=== PATIENT | male | born 1985 | race Hispanic/Latino ===

== ENCOUNTER 2017-11-04 03:56 | Emergency (ER) | payer SELFPAY | END 2017-11-04 04:40 | disposition left against medical advice (07) | LOC: EDH 03:56 | DX: S09.8XXA Other specified injuries of head, initial encounter (principal); Y08.89XA Assault by other specified means, initial encounter; Y93.89 Activity, other specified; Y92.89 Other specified places as the place of occurrence of the external cause; Y99.8 Other external cause status | CPT/HCPCS: 99281 ==

== ENCOUNTER 2018-03-06 00:48 | Emergency (ER) | payer SELFPAY ==
[2018-03-06] MEDS ORDERED: ACETAMINOPHEN 325 MG TAB ONE (00:54)
== END 2018-03-06 01:33 | disposition home or self-care (01) ==
LOC: EDH 00:48
DX: S62.398A Other fracture of other metacarpal bone, initial encounter for closed fracture (principal); Z72.0 Tobacco use; W22.8XXA Striking against or struck by other objects, initial encounter; Y93.89 Activity, other specified; Y92.488 Other paved roadways as the place of occurrence of the external cause; Y99.8 Other external cause status
CPT/HCPCS: 73130

== ENCOUNTER 2019-09-23 05:09 | Emergency (ER) | payer OTHER ==
[2019-09-23] MEDS ORDERED: HYDROCODONE/ACETAMINOPHEN 5/325 MG TAB ONE (05:57)
== END 2019-09-23 06:24 | disposition home or self-care (01) ==
LOC: EDH 05:09
DX: S82.892A Other fracture of left lower leg, initial encounter for closed fracture (principal); X58.XXXA Exposure to other specified factors, initial encounter; Y93.89 Activity, other specified; Y92.410 Unspecified street and highway as the place of occurrence of the external cause; Y99.9 Unspecified external cause status
CPT/HCPCS: 29515; 73610

== ENCOUNTER 2019-11-29 23:47 | Emergency (ER) | payer OTHER ==
[2019-11-30] MEDS ORDERED: SODIUM CHLORIDE 0.9% 1000ML 2,000 ML IV ONE
[2019-11-30] MEDS ORDERED: ORPHENADRINE CITRATE 30 MG/ML ML ONE
[2019-11-30 00:27] LABS: BASOPHILS % (AUTO) 1.8 % (0.0-5.0); EOSINOPHILS % (AUTO) 1.3 % (0.0-8.0); LYMPHOCYTES % (AUTO) 22.2 % (21.0-51.0); MEAN CORPUSCULAR HEMOGLOBIN 30.7 pg (27.0-33.0); MEAN CORPUSCULAR HGB CONC 33.5 g/dL (32.0-36.0); MEAN CORPUSCULAR VOLUME 91.7 fL (79-99); NEUTROPHILS % (AUTO) 63.2 % (40.0-77.0); PLATELET COUNT (AUTO) 233 K/uL (130-400); RED BLOOD CELL COUNT(AUTO) 4.69 MIL/uL (4.50-6.20); RED CELL DISTRIBUTION WIDTH 13.7 % (11.0-15.5); WHITE BLOOD COUNT (AUTO) 6.8 K/uL (4.8-10.8)
[2019-11-30] MEDS ORDERED: IOHEXOL 350 MG/ML 100ML INFUS..BTL IV ONE (00:31)
[2019-11-30 00:32] LABS: CREATININE 0.8 mg/dL (0.5-1.5); POTASSIUM 3.8 mmol/L (3.5-5.1)
[2019-11-30 00:37] LABS: BILIRUBIN,TOTAL 0.3 mg/dL (0.2-1.0); TOTAL PROTEIN, SERUM 8.1 g/dL (6.0-8.3)
[2019-11-30 00:45] LABS: APPEARANCE,URINE Clear (CLEAR); BILIRUBIN,URINE Negative (NEGATIVE); COLOR,URINE Yellow (YELLOW); GLUCOSE, URINE (UA) Negative (NEGATIVE); KETONES,URINE Negative (NEGATIVE); LEUKOCYTE ESTERASE ,URINE Negative (NEGATIVE); NITRATE,URINE Negative (NEGATIVE); OCCULT BLOOD,URINE Negative (NEGATIVE); PROTEIN,URINE Negative (NEGATIVE); UROBILINOGEN,URINE 0.2 mg/dL (0.2-1.0)
[2019-11-30 00:53] LABS: INR 0.95 (0.85-1.15); PARTIAL THROMBOPLASTIN TIME 26.2 SEC (26.3-35.5)
[2019-11-30 01:08] LABS: AMPHET/METH SCREEN,URINE NEGATIVE (NEGATIVE); BARBITURATE SCREEN, URINE NEGATIVE (NEGATIVE); BENZODIAZEPINES SCREEN,URINE NEGATIVE (NEGATIVE); CANNABINOID SCREEN,URINE NEGATIVE (NEGATIVE); COCAINE SCREEN,URINE NEGATIVE (NEGATIVE); OPIATE SCREEN,URINE NEGATIVE (NEGATIVE); PHENCYCLIDINE SCREEN,URINE NEGATIVE (NEGATIVE)
[2019-11-30] MEDS ORDERED: KETOROLAC TROMETHAMINE 15MG/ML ONE (01:16)
== END 2019-11-30 01:34 ==
LOC: EDH 23:47
DX: S96.912A Strain of unspecified muscle and tendon at ankle and foot level, left foot, initial encounter (principal); S00.83XA Contusion of other part of head, initial encounter; S50.312A Abrasion of left elbow, initial encounter; M62.838 Other muscle spasm; F10.129 Alcohol abuse with intoxication, unspecified; V03.99XA Pedestrian with other conveyance injured in collision with car, pick-up truck or van, unspecified whether traffic or nontraffic accident, initial encounter; Y93.89 Activity, other specified; Y92.89 Other specified places as the place of occurrence of the external cause; Y99.8 Other external cause status
CPT/HCPCS: 36415; 70450; 71260; 72125; 73080; 73552; 73610; 74177; 80053; 80305; 81003; 82550; 83690; 85025; 85610; 85730; 96374; 96375; 99285; G0480; J1885; J2360; J7030; Q9967

== ENCOUNTER 2023-12-23 16:33 | Emergency (ER) | payer BC ==
[~2023-12-23] VITALS: Ht 175.3 cm; Wt 79.4 kg
[2023-12-23 17:17] LABS: SARS-CoV-2, RNA, NAAT NEGATIVE SARS CoV-2 (NEGATIVE)
[2023-12-23 17:19] LABS: RAPID GROUP A STREP negative (NEGATIVE)
[2023-12-23 17:29] LABS: INFLUENZA TYPE A Negative For Type A (NEGATIVE); INFLUENZA TYPE B Negative For Type B (NEGATIVE)
[2023-12-23] MEDS ORDERED: IBUP-2077 PO (17:55)
[2023-12-23] MEDS ORDERED: BENZ-39 PO (17:55)
[2023-12-23] MEDS ORDERED: AMOX1TAB16 PO (17:55)
[2023-12-23 18:03] VITALS: BP 166/71; PULSE 81; RESP 18; O2SAT 99
== END 2023-12-23 18:04 | disposition home or self-care (01) ==
LOC: EDH 16:33
DX: J06.9 Acute upper respiratory infection, unspecified (principal); R05.9 Cough, unspecified; R50.9 Fever, unspecified; J02.9 Acute pharyngitis, unspecified; Z20.822 Contact with and (suspected) exposure to COVID-19
CPT/HCPCS: 87635; 87804; 87880

== ENCOUNTER 2024-07-05 02:25 | Emergency (ER) | payer BC ==
[~2024-07-05] VITALS: Ht 175.3 cm; Wt 83.9 kg
[~2024-07-05 02:25] MED LIST: AMOX1TAB16 PO; BENZ-39 PO; IBUP-2077 PO
[2024-07-05 05:55] LABS: CREATININE 0.8 mg/dL (0.5-1.3); POTASSIUM 3.9 mmol/L (3.5-5.1)
[2024-07-05] MEDS ORDERED: IOHEXOL 350 MG/ML 100ML INFUS..BTL IV ONE (06:05)
[2024-07-05 06:57] VITALS: TEMP 98.4
[2024-07-05 08:04] VITALS: BP 120/77; PULSE 100; RESP 18; O2SAT 94
[2024-07-05] MEDS: acetaMINOPHEN 500 MG TABLET PO ONE (08:52)
[2024-07-05] MEDS: acetaMINOPHEN 500 MG TABLET ONE (08:53)
== END 2024-07-05 09:21 | disposition home or self-care (01) ==
LOC: EDH 02:25 → EEVIPCON 02:25 → EDH 09:21
DX: S22.32XA Fracture of one rib, left side, initial encounter for closed fracture (principal); S32.058A Other fracture of fifth lumbar vertebra, initial encounter for closed fracture; R10.84 Generalized abdominal pain; I10 Essential (primary) hypertension; Z79.899 Other long term (current) drug therapy; Z98.890 Other specified postprocedural states; X58.XXXA Exposure to other specified factors, initial encounter; Y93.89 Activity, other specified; Y92.148 Other place in prison as the place of occurrence of the external cause; Y99.8 Other external cause status
CPT/HCPCS: 99284; 70450; 80048; 36415; 73080; 73110; 71101; 71260; 74177; Q9967

== ENCOUNTER 2024-10-10 07:59 | Emergency (ER) | payer BC ==
[~2024-10-10] VITALS: Ht 172.7 cm; Wt 83.9 kg
--- NOTE | 2024-10-10 08:35 | ERN ---
ED Note History of Present Illness Stated Complaint: HEADACHE Chief Complaint: Headache Time Seen by MD: 08:01 Dictation: Patient is a 38-year-old male with past medical history of hypertension came to the ED with a chief complaint of headache since 2 days. Patient complains of headache, productive cough with yellow sputum, fevers started 2 days ago. Patient denies sore throat, shortness of breath, chest pain, nausea, vomitings. He patient denies any history of allergy, head trauma, history of migraines. Allergies: Coded Allergies: No Known Allergies (Unverified Allergy, Unknown, 09/23/19) No Known Drug Allergies (Unverified Allergy, Unknown, 11/30/19) Home Meds Active Scripts Diphenhydramine HCl (Benadryl Allergy) 25 Mg Tablet, 25 MG PO BID, #20 TAB Prov:SINAN SCOTT MD 10/10/24 Fluticasone Propionate (Flonase Nasal Loraine) 50 Mcg/Actuation Loraine, 50 MCG NASAL BID, #1 SPRAY Prov:SINAN SCOTT MD 10/10/24 Amoxicillin/Potassium Clav (Amox Tr-K Clv 875-125 mg Tab) 875 Mg-125 Mg Tablet, 1 EACH PO DAILY for 6 Days, #6 TAB Prov:SINAN SCOTT MD 10/10/24 Benzonatate (Tessalon Perles) 100 Mg Cap, 100 MG PO TID for cough, #30 CAP 0 Refills Prov:ADRIANNE GRACE [employer] 12/23/23 Ibuprofen (Ibuprofen 800 mg Tab) 800 Mg Tab, 800 MG PO Q8H PRN for fever or pain, #30 TAB 0 Refills Prov:ADRIANNE GRACE [employer] 12/23/23 Amoxicillin/Potassium Clav (Amox Tr-K Clv 875-125 mg Tab) 875 Mg-125 Mg Tablet, 1 EACH PO BID for 7 Days, #14 TAB 0 Refills Prov:ADRIANNE GRACE [employer] 12/23/23 Past Medical History Past Medical History: No Pertinent History, Hypertension Surgical History: Other Surgical History Other: LEFT ARM RECONSTRUCTIVE SX, FACIAL Review of System Dictation Constitutional-no weight loss/gain, patient has chills, fever Eyes-no injury, pain, redness and discharge ENT-no injury, pain, swelling Cardiovascular no chest pain, palpitations, edema Respiratory no shortness of breath, wheezing. Patient has productive cough with yellow sputum Abdomen/GI-no abdominal pain, diarrhea, constipation, vomiting, nausea Back no injury and pain Genitourinary no injury, bleeding and discharge Musculoskeletal/extremities no injury, deformity Skin no rash, discoloration Neuro-no, weakness, numbness, tingling, seizures, tremors. Patient has headache Psych-no suicidal ideation, homicidal ideation, hallucinations, depression, anxiety, memory loss Initial Vital Sign VS Vital Signs Date Time Temp Pulse Resp B/P (MAP) Pulse Ox O2 Delivery O2 Flow Rate FiO2 10/10/24 08:00 98.6 88 16 149/94 98 Room Air 0 10/10/24 08:00 21 Physical Exam Dictation General-patient is awake alert and oriented Head/neck-normocephalic, atraumatic . Patient has frontal, ethmoidal, maxillary, sphenoid sinus pressure and tenderness Eyes-PERRL, EOMI, vision at baseline Neck-trachea midline, supple, no nuchal rigidity Cardiovascular-RRR, normal S1/S2, no MRG is, no JVD Respiratory-no distress, wheezing, rales, rhonchi Abdomen-no tenderness, guarding, soft, nondistended Skin warm, dry, normal turgor, no rash Musculoskeletal/extremities pulses equal, no cyanosis Neuro-COA X 4, GCS 15, strength 5/5, CN 2-12 intact Psych-normal behavior, mood and affect normal Results (Laboratory/Radiology) Laboratory/Radiology Laboratory Tests Test 10/10/24 08:09 Influenza Type A Antigen Negative For Type A Influenza Type B Antigen Negative For Type B SARS-CoV-2 Antigen (Rapid) PRESUMPTIVE NEGATIVE ED Course ED Course Orders Procedure Category Date Status Time Covid19 (Sars Antigen LAB 10/10/24 Complete Rapid) 08:04 Influenza Type A & B, LAB 10/10/24 Complete Rapid 08:04 Vital Signs Date Time Temp Pulse Resp B/P (MAP) Pulse Ox O2 Delivery O2 Flow Rate FiO2 10/10/24 08:48 98.6 80 16 142/80 98 Room Air* 0 21 10/10/24 08:00 98.6 88 16 149/94 98 Room Air* 0 21 10/10/24 08:00 98.6 88 16 149/94 98 Room Air 0 Medical Decision Making MDM INITIAL IMPRESSION Initial history and physical concerning for sinus headache, sinusitis Contributing medical problems: None I have reviewed the triage nursing notes and vital signs. Initial plan: Flu Swabs DATA REVIEW I have reviewed additional NN, repeat VS, and monitoring where indicated. Heart rate, blood pressure, and O2 saturation are acceptable. ED COURSE Interventions: None Reassessment: Not indicate DISPOSITION Final diagnostic impression: Sinus headache I discussed my findings, clinical impression and treatment recommendations with the patient. My final plan for disposition was made based upon -mild risk of complications and potential morbidity of the patient's condition. -Discussion with the patient regarding management options. Patient will be discharged with medication DX & DISP Disposition: Discharge Departure Impression: Primary Impression: Sinus headache Condition: Stable Scripts Diphenhydramine HCl (Benadryl Allergy) 25 Mg Tablet 25 MG PO BID, #20 TAB Prov: SINAN SCOTT MD 10/10/24 Fluticasone Propionate (Flonase Nasal Loraine) 50 Mcg/Actuation Loraine 50 MCG NASAL BID, #1 SPRAY Prov: SINAN SCOTT MD 10/10/24 Amoxicillin/Potassium Clav (Amox Tr-K Clv 875-125 mg Tab) 875 Mg-125 Mg Tablet 1 EACH PO DAILY for 6 Days, #6 TAB Prov: SINAN SCOTT MD 10/10/24 Additional Instructions: Come back to the ED if you have any acute or emergency symptoms To prevent dehydration, drink plenty of fluids. Choose water and other clear liquids until you feel better. Be careful when taking ebik-nys-jeekpee cold or flu medicines and Tylenol at the same time. Many of these medicines have acetaminophen, which is Tylenol. Read the labels to make sure that you are not taking more than the recommended dose. Too much acetaminophen (Tylenol) can be harmful. Get plenty of rest. Use saline (saltwater) nasal washes to help keep your nasal passages open and wash out mucus and allergens. You can buy saline nose sprays at a grocery store or drugstore. Follow the instructions on the package. Use a vaporizer or humidifier to add moisture to your bedroom. Follow the instructions for cleaning the machine. Do not smoke or allow others to smoke around you. If you need help quitting, talk to your doctor about stop-smoking programs and medicines. These can increas e your chances of quitting for good. Referrals: SELF,REFERRAL (PCP) Time of Disposition: 08:47 I have reviewed I have reviewed the case I WAS PRESENT AND PARTICIPATED IN THE CARE OF THIS PATIENT ALONGSIDE WITH THE RESIDENT PHYSICIAN. I HAVE REVIEWED AND PERSONALLY MADE AND APPROVED THE MANAGEMENT PLAN THAT IS DOCUMENTED IN THE NOTE BY MYSELF WITH THE RESIDENT PHYSICIAN. I ACKNOWLEDGED FOR RESPONSIBILITY FOR THE PATIENT'S MANAGEMENT PLAN. I have examined patient SINAN SCOTT MD Oct 10, 2024 08:35 CURT CORDERO MD Oct 12, 2024 07:34
[2024-10-10] MEDS ORDERED: AMOX1TAB16 PO (08:45)
[2024-10-10] MEDS ORDERED: FLUT16H NASAL (08:45)
[2024-10-10] MEDS ORDERED: DIPH25TA51 PO (08:45)
[2024-10-10 08:48] VITALS: BP 142/80; PULSE 80; RESP 16; TEMP 98.6; O2SAT 98
[2024-10-10 08:50] LABS: COVID19 (SARS ANTIGEN RAPID) PRESUMPTIVE NEGATIVE (NEGATIVE); INFLUENZA TYPE A Negative For Type A (NEGATIVE); INFLUENZA TYPE B Negative For Type B (NEGATIVE)
== END 2024-10-10 08:48 | disposition home or self-care (01) ==
LOC: EDH 07:59
DX: R51.9 Headache, unspecified (principal); I10 Essential (primary) hypertension; Z20.822 Contact with and (suspected) exposure to COVID-19; Z79.899 Other long term (current) drug therapy; Z98.890 Other specified postprocedural states
CPT/HCPCS: 87426; 87804; 99283